=== PATIENT | female | born 1950 | race Asian ===

== ENCOUNTER 2023-04-17 04:13 | Day surgery (SDC) | payer OTHER ==
[2023-04-14 11:39] VITALS: BMI 24.5
[2023-04-17 06:29] VITALS: RESP 20
[2023-04-17] MEDS ORDERED: LIDOCAINE HCL 1%, 10 MG/ML (20ML VIAL) ONE (07:11)
[2023-04-17] MEDS ORDERED: BUPIVACAINE HCL/PF 0.5% (5MG/ML) 10 ML VIAL ONE (07:11)
[2023-04-17] MEDS ORDERED: PROPOFOL 20 ML ONE ×2 (07:53→08:03)
[2023-04-17] MEDS ORDERED: ceFAZolin SODIUM 1 GM VIAL IVPB ONE (07:55)
[2023-04-17] MEDS ORDERED: LIDOCAINE HCL 1%, 10 MG/ML (20ML VIAL) INF ONE (08:07)
[2023-04-17] MEDS ORDERED: BUPIVACAINE HCL/PF 0.5% (5MG/ML) 10 ML VIAL IJ ONE (08:07)
[2023-04-17 10:12] VITALS: BP 155/79; PULSE 53; TEMP 97.2
== END 2023-04-17 11:21 | disposition home or self-care (01) ==
LOC: JASU-SURG 04:13
PROVIDERS: ATTEND Orthopaedic Surgery
PROC: 0LB60ZZ Excision of Left Lower Arm and Wrist Tendon, Open Approach (ICD-10-PCS; 2023-04-17)
PROC: 01N50ZZ Release Median Nerve, Open Approach (ICD-10-PCS; principal; 2023-04-17 08:00)
DX: G56.02 Carpal tunnel syndrome, left upper limb (principal); M65.832 Other synovitis and tenosynovitis, left forearm
CPT/HCPCS: 88304-TC; 93005; 93010